=== PATIENT | female | born 1985 | race Caucasian/White ===

== ENCOUNTER 2017-01-29 20:10 | Emergency (ER) | payer OTHER | END 2017-01-29 22:17 | disposition home or self-care (01) | LOC: ER 20:10 | DX: G43.909 Migraine, unspecified, not intractable, without status migrainosus (principal); F32.9 Major depressive disorder, single episode, unspecified; F41.9 Anxiety disorder, unspecified; F17.210 Nicotine dependence, cigarettes, uncomplicated; Z98.51 Tubal ligation status; Z87.442 Personal history of urinary calculi; Z87.440 Personal history of urinary (tract) infections; Z88.0 Allergy status to penicillin; Z88.5 Allergy status to narcotic agent; Z88.8 Allergy status to other drugs, medicaments and biological substances | CPT/HCPCS: 96361; 96374; 96375; J0780; J1200; J1885; J2765 ==

== ENCOUNTER 2017-03-08 00:04 | Emergency (ER) | payer OTHER | END 2017-03-08 01:09 | disposition home or self-care (01) | LOC: ER 00:04 | DX: G43.109 Migraine with aura, not intractable, without status migrainosus (principal); F32.9 Major depressive disorder, single episode, unspecified; F41.9 Anxiety disorder, unspecified; F17.210 Nicotine dependence, cigarettes, uncomplicated; G43.909 Migraine, unspecified, not intractable, without status migrainosus; Z87.440 Personal history of urinary (tract) infections; Z87.442 Personal history of urinary calculi; Z98.51 Tubal ligation status; Z79.899 Other long term (current) drug therapy; Z88.0 Allergy status to penicillin; Z88.5 Allergy status to narcotic agent; Z88.6 Allergy status to analgesic agent | CPT/HCPCS: 96372; J2270; J2550 ==

== ENCOUNTER 2017-03-14 22:27 | Emergency (ER) | payer OTHER | END 2017-03-15 00:30 | disposition home or self-care (01) | LOC: ER 22:27 | DX: G43.909 Migraine, unspecified, not intractable, without status migrainosus (principal); F32.9 Major depressive disorder, single episode, unspecified; F41.9 Anxiety disorder, unspecified; F17.210 Nicotine dependence, cigarettes, uncomplicated; Z98.51 Tubal ligation status; Z87.442 Personal history of urinary calculi; Z87.440 Personal history of urinary (tract) infections; Z79.899 Other long term (current) drug therapy; Z88.0 Allergy status to penicillin; Z88.5 Allergy status to narcotic agent; Z88.6 Allergy status to analgesic agent; Z88.8 Allergy status to other drugs, medicaments and biological substances | CPT/HCPCS: 96361; 96374; 96375; J1100; J1200; J2550 ==

== ENCOUNTER 2017-05-02 20:00 | Emergency (ER) | payer OTHER | END 2017-05-02 21:33 | disposition home or self-care (01) | LOC: ER 20:00 | DX: G43.909 Migraine, unspecified, not intractable, without status migrainosus (principal); F43.20 Adjustment disorder, unspecified; F41.9 Anxiety disorder, unspecified; F32.9 Major depressive disorder, single episode, unspecified; Z88.0 Allergy status to penicillin; Z88.5 Allergy status to narcotic agent | CPT/HCPCS: 96372; J0780; J1100; J1885 ==